=== PATIENT | female | born 1940 | race Caucasian/White ===

== ENCOUNTER 2018-03-12 13:00 | Outpatient (RCR) | payer MEDICARE, MEDICAID, SELFPAY | END 2018-03-12 13:01 | disposition home or self-care (01) | LOC: OT 13:00 | PROVIDERS: Family Provider Family Medicine; Visit Provider Orthopaedic Surgery Hand Surgery | DX: M06.09 Rheumatoid arthritis without rheumatoid factor, multiple sites (principal); M66.241 Spontaneous rupture of extensor tendons, right hand; M19.031 Primary osteoarthritis, right wrist; M85.631 Other cyst of bone, right forearm; Z48.89 Encounter for other specified surgical aftercare | CPT/HCPCS: 97110; 97140; 97163; 97166 ==

== ENCOUNTER → 2018-04-08 10:03 | Outpatient (CLI) | payer MEDICARE, MEDICAID, SELFPAY ==
[2018-04-08 10:51] LABS: Anion Gap 12.3 mEq/L (5-15); Blood Urea Nitrogen 22 mg/dL (7-18); Carbon Dioxide 27 mmol/L (21.0-32.0); Chloride 103 mmol/L (98-107); Creatinine,Serum 1.16 mg/dL (0.55-1.02); Estimated Glomerular Filt Rate 45 ml/min (>60); GFR (African American) 54 ML/MIN (>60); Glucose 136 mg/dL (74-106); Potassium 4.3 mmoL/L (3.5-5.1); Sodium 138 mmol/L (136-145)
== END ==
PROVIDERS: Visit Provider Physician Assistant
DX: R94.4 Abnormal results of kidney function studies (principal)
CPT/HCPCS: 36415; 80048

== ENCOUNTER → 2018-04-23 09:19 | Outpatient (CLI) | payer MEDICARE, MEDICAID, SELFPAY ==
[2018-04-23 10:45] LABS: Anion Gap 16.5 mEq/L (5-15); Blood Urea Nitrogen 22 mg/dL (7-18); Calcium 9.3 mg/dL (8.5-10.1); Carbon Dioxide 24 mmol/L (21.0-32.0); Chloride 101 mmol/L (98-107); Creatinine,Serum 1.26 mg/dL (0.55-1.02); Estimated Glomerular Filt Rate 41 ml/min (>60); GFR (African American) 49 ML/MIN (>60); Glucose 118 mg/dL (74-106); Potassium 4.5 mmoL/L (3.5-5.1); Sodium 137 mmol/L (136-145)
== END ==
PROVIDERS: Visit Provider Physician Assistant
DX: R94.4 Abnormal results of kidney function studies (principal)
CPT/HCPCS: 36415; 80048

== ENCOUNTER → 2018-05-18 08:57 | Outpatient (CLI) | payer MEDICARE, MEDICAID, SELFPAY ==
[2018-05-18 10:09] LABS: Anion Gap 9.9 mEq/L (5-15); Blood Urea Nitrogen 25 mg/dL (7-18); Calcium 9.1 mg/dL (8.5-10.1); Carbon Dioxide 30 mmol/L (21.0-32.0); Chloride 105 mmol/L (98-107); Creatinine,Serum 1.24 mg/dL (0.55-1.02); Estimated Glomerular Filt Rate 42 ml/min (>60); GFR (African American) 50 ML/MIN (>60); Glucose 143 mg/dL (74-106); Potassium 3.9 mmoL/L (3.5-5.1); Sodium 141 mmol/L (136-145)
== END ==
PROVIDERS: Visit Provider Physician Assistant
DX: N28.9 Disorder of kidney and ureter, unspecified (principal)
CPT/HCPCS: 36415; 80048

== ENCOUNTER 2019-01-16 09:13 | Observation (INO) ==
--- NOTE | 2019-01-16 09:23 | Emergency Department Note ---
ED Disposition Clinical Impression: UTI (urinary tract infection), Hypokalemia Disposition: Home, Self-Care Condition on Discharge: Good Time of Disposition: 14:30 - Critical Care Critical Care Time: No Attestation: On , the high probability of a clinically significant, sudden or life threatening deterioration of the following system(s) required my full and direct attention, intervention and personal management. The time I documented below is in addition to time spent performing reported procedures but includes the following listed in this critical care notation. Medical Decision Making - Medical Records Medical records reviewed: Yes: I reviewed the patient's medical records. - Rohit Inquiry Pt receiving controlled substance: No Rohit was queried for this patient: No Vital Signs: 01/16/19 09:10 01/16/19 10:33 01/16/19 12:00 Temperature 99.6 F Temperature Source Oral Pulse Rate Pulse Rate [Right Brachial] 80 80 80 Respiratory Rate 18 Blood Pressure Blood Pressure [Right Arm] 148/89 H 135/87 141/86 H Blood Pressure Mean [Right Arm] 108 103 104 Blood Pressure Source Blood Pressure Source [Right Arm] Automatic Cuff Blood Pressure Position Blood Pressure Position [Right Arm] Sitting 02 Sat by Pulse Oximetry 97 97 94 L Oxygen Delivery Method Room Air 01/16/19 14:25 01/16/19 15:05 01/16/19 15:30 Temperature 98.0 F Temperature Source Oral Pulse Rate 81 Pulse Rate [Right Brachial] 82 Respiratory Rate 18 Blood Pressure 115/59 L Blood Pressure [Right Arm] 151/85 H Blood Pressure Mean [Right Arm] 107 Blood Pressure Source Automatic Cuff Blood Pressure Source [Right Arm] Blood Pressure Position Sitting Blood Pressure Position [Right Arm] 02 Sat by Pulse Oximetry 95 Oxygen Delivery Method Room Air Room Air - Lab Data Lab results reviewed: Yes: I reviewed the patient's lab results. Lab Results 01/16/19 09:17: WBC 7.4, RBC 5.24, Hgb 16.1, Hct 45.5, MCV 86.8, MCH 30.7, MCHC 35.4, RDW 13.5, Plt Count 251, MPV 7.0 L, Neut % (Auto) 78.7, Lymph % (Auto) 13.8, [place] % (Auto) 5.8, Eos % (Auto) 1.2, Baso % (Auto) 0.4, Neut # (Auto) 5.8, Lymph # (Auto) 1.0, [place] # (Auto) 0.4, Eos # (Auto) 0.1, Baso # (Auto) 0.0 01/16/19 09:17: Sodium 143, Potassium 2.8 L*, Chloride 103, Carbon Dioxide 26, Anion Gap 16.8 H, BUN 18, Creatinine 1.15 H, Estimated Creat Clear 43, Estimated GFR 45 L, Est GFR ( Amer) 55 L, Glucose 185 H, Calcium 9.2, Total Bilirubin 0.8, AST 15, ALT 18, Alkaline Phosphatase 67, Troponin I < 0.02, Total Protein 7.7, Albumin 3.8, Globulin 3.9 H, Albumin/Globulin Ratio 1.0 L 01/16/19 09:17: Influenza Type A Ag Negative, Influenza Type B Ag Negative 01/16/19 09:17: Lactate 1.3 01/16/19 11:35: Urine Color Yellow, Urine Appearance Sl cloudy, Urine pH 6.5, Ur Specific [place] 1.010, Urine Protein Negative, Urine Glucose (UA) Negative, Urine Ketones Negative, Urine Blood Negative, Urine Nitrate Negative, Urine Bilirubin Negative, Urine Urobilinogen 0.2, Ur Leukocyte Esterase 1+ A, Urine WBC 20-50, Ur Squamous Epith Cells Occasional, Urine Bacteria 4+ Result diagrams: 01/17/19 05:49 01/18/19 06:35 Orders (Tests/Meds): ED MEDICATIONS Discontinued Medications Generic Name Dose Route Start Last Admin Trade Name Kathie PRN Reason Stop Dose Admin Bisacodyl 10 mg 01/17/19 17:54 01/17/19 18:33 Dulcolax 5mg Tablet PO 01/17/19 17:55 10 mg ONCE ONE Administration Bisacodyl 10 mg 01/18/19 07:34 01/18/19 08:30 Dulcolax 10mg Supp RC 01/18/19 07:35 10 mg ONCE ONE Administration Glimepiride 2 mg 01/17/19 09:00 01/18/19 08:29 Amaryl 2mg Tablet PO 02/16/19 08:59 2 mg DAILY TREVA Administration Sodium Chloride 1,000 mls @ 999 mls/hr 01/16/19 09:15 01/16/19 09:20 Sod Chlor 0.9% 1000ml Bag IV 01/16/19 10:15 999 mls/hr .Q1H1M TREVA Administration Potassium Chloride/Water 100 mls @ 100 mls/hr 01/16/19 10:32 01/16/19 10:33 Potassium Chloride 10meq/100ml Ivpb IV 01/16/19 11:31 100 mls/hr ONCE ONE Administration Ceftriaxone Sodium 2 gm/ 50 mls @ 100 mls/hr 01/16/19 12:15 01/16/19 12:10 Sodium Chloride IV 01/30/19 12:14 100 mls/hr Q24H TREVA Administration Protocol Ceftriaxone Sodium 2 gm/ 100 mls @ 200 mls/hr 01/17/19 11:00 Sodium Chloride IV 01/31/19 10:59 Q24H TREVA Protocol Sodium Chloride 1,000 mls @ 125 mls/hr 01/16/19 15:05 01/17/19 20:33 Sod Chlor 0.9% 1000ml Bag IV 02/15/19 15:04 Not Given .Q8H TREVA Levofloxacin/Dextrose 750 mg in 150 mls @ 100 mls/hr 01/16/19 15:05 01/17/19 15:36 Levofloxacin 750mg/150ml Premix IV 01/30/19 15:04 100 mls/hr Q24H TREVA Administration Protocol Sodium Chloride 1,000 mls @ 75 mls/hr 01/17/19 18:00 01/18/19 08:27 Sod Chlor 0.9% 1000ml Bag IV 02/16/19 17:59 75 mls/hr .[id number] TREVA Administration Ceftriaxone Sodium 1 gm/ 50 mls @ 100 mls/hr 01/18/19 08:00 01/18/19 08:26 Sodium Chloride IV 02/01/19 07:59 100 mls/hr Q24H TREVA Administration Protocol Levothyroxine Sodium 50 mcg 01/17/19 09:00 01/18/19 08:29 Synthroid 50mcg (0.05mg) Tablet PO 02/16/19 08:59 50 mcg DAILY TREVA Administration Levothyroxine Sodium 50 mcg 01/17/19 09:00 Synthroid 50mcg (0.05mg) Tablet PO 02/16/19 08:59 DAILY TREVA Non-Formulary Medication 1 tab 01/17/19 09:00 Apixaban [Eliquis] PO 02/16/19 08:59 DAILY TREVA Non-Formulary Medication 1 tab 01/16/19 15:05 01/16/19 20:12 Dofetilide [Dofetilide] PO 02/15/19 15:04 1 tab DIRECTED TREVA Administration Non-Formulary Medication 1 tab 01/16/19 15:05 Metoprolol Tartrate [Metoprolol Tartrate] PO 02/15/19 15:04 DIRECTED TREVA Pt's Own Med 1 tab 01/16/19 21:00 01/17/19 21:00 Simvastatin 40 Mg PO 02/15/19 20:59 1 tab Tab HS TREVA Administration Pt's Own Med 5 tab 01/16/19 21:00 01/17/19 09:26 Apixaban [Eliquis] 5 PO 02/15/19 20:59 Not Given Tab BID TREVA Non-Formulary Medication 100 tab 01/16/19 21:00 01/16/19 20:14 Metoprolol Tartrate [Metoprolol Tartrate] PO 02/15/19 20:59 100 tab BID TREVA Administration Pt's Own Med 1 tab 01/17/19 08:26 01/18/19 08:28 Dofetilide [ PO 02/15/19 15:04 1 tab Dofetilide] 250 Mcg BID TREVA Administration Tab Pt's Own Med 1 tab 01/17/19 08:29 01/18/19 08:29 Metoprolol Tartrate PO 02/15/19 20:59 1 tab 100mg Tab BID TREVA Administration Pt's Own Med 1 tab 01/17/19 09:09 01/18/19 08:28 Apixaban [Eliquis] 5 PO 02/15/19 20:59 1 tab Tab BID TREVA Administration Ondansetron HCl 4 mg 01/16/19 09:15 01/16/19 09:21 Zofran 4mg/2ml Vial IV 01/16/19 09:16 4 mg ONCE ONE Administration Ondansetron HCl 4 mg 01/16/19 15:05 01/17/19 07:46 Zofran 4mg/2ml Vial IV 02/15/19 15:04 4 mg Q8HP PRN Administration Nausea Potassium Chloride 40 meq 01/16/19 09:53 01/16/19 10:23 Klor-Con 20meq Tablet PO 01/16/19 09:54 20 meq ONCE ONE Administration Potassium Chloride 20 meq 01/16/19 21:00 Klor-Con 20meq Tablet PO 02/15/19 20:59 TID TREVA Potassium Chloride meq 01/16/19 15:05 Klor-Con 20meq Tablet PO 02/15/19 15:04 DIRECTED TREVA Potassium Chloride 20 meq 01/16/19 21:00 01/18/19 12:36 Klor-Con 20meq Tablet PO 02/15/19 20:59 20 meq TID TREVA Administration Senna/Docusate Sodium 2 tab 01/17/19 09:00 01/18/19 08:30 Senokot-S Tablet PO 02/16/19 08:59 2 tab DAILY TREVA Administration Sodium Chloride 10 ml 01/17/19 07:44 Saline Flush 10ml Syringe IV 02/16/19 07:43 NEEDED PRN Maintain IV Site Sodium Chloride 10 ml 01/17/19 17:53 Saline Flush 10ml Syringe IV 02/16/19 17:52 NEEDED PRN Maintain IV Site General Adult HPI - General Chief complaint: Nausea/Vomiting/Diarrhea Stated complaint: weakness, fever,n/v Time Seen by Provider: 01/16/19 09:21 Mode of Arrival: EMS Source of Information: Patient Limitations: No Limitations Description of Symptoms (Recalled from ER Triage Doc. by RN): experienced n/v last week with recovery; began vomiting again this date, low grade fever, weakness experienced - History of Present Illness HPI narrative: nausea since yesterday, 10 days ago had n/v but did not see doctor. No pain - Related Data Home Medications Medication Instructions Recorded Confirmed RX: Apixaban [Eliquis] 5 mg PO BID 01/16/19 01/17/19 RX: Dofetilide 250 mcg PO BID 01/16/19 01/17/19 RX: Glimepiride [Amaryl 2mg tablet] 2 mg PO DAILY 01/16/19 01/17/19 RX: Levothyroxine Sodium 50 mcg PO DAILY 01/16/19 01/17/19 [Levothyroxine 50mcg (0.05mg) Tab] RX: Metoprolol Tartrate 100 mg PO BID 01/16/19 01/17/19 RX: Simvastatin 40 mg PO HS 01/16/19 01/17/19 RX: Furosemide [Furosemide 40MG 20 mg PO DAILY 01/17/19 01/17/19 tAB] Previous Rx's Medication Instructions Recorded RX: Potassium Chloride [Klor-con 20 meq PO BID #0 01/18/19 20 mEq tablet] RX: cefUROXime axetil [Ceftin 500 mg PO BID #14 tab 01/18/19 500mg Tab (GEQ)] Allergies Allergy/AdvReac Type Severity Reaction Status Date / Time No Known Allergies Allergy Verified 01/16/19 09:14 [facility] History - Hepatitis A Screen Drug use history?: No High risk sexual behaviors?: No History of sexually transmitted infection?: No Currently employed?: No Childcare worker?: No Do you have indoor plumbing?: Yes Do you have electricity?: Yes Attestation statement:: This patient has been screened for Hepatitis A risk factors. I have reviewed the patient's past medical history: No ROS Obtained: Yes All systems reviewed & no additional complaints - Constitutional Constitutional: Reports system reviewed and no additional complaints, except as docu, Reports chills, Reports fever(s), Reports lethargy - Eyes Eyes: Reports system reviewed and no additional complaints, except as docu, Denies change in vision - ENT Ears, Nose, Mouth, and Throat: Reports system reviewed and no additional compla ints, except as docu, Denies sore throat, Denies throat swelling - Cardiovascular Cardiovascular: Reports system reviewed and no additional complaints, except as docu, Denies chest pain - Respiratory Respiratory: Yes system reviewed and no additional complaints, except as docu, No chest congestion, No cough - Gastrointestinal Gastrointestingal: Reports: system reviewed and no additional complaints, except as docu, nausea. Denies: abdominal pain, diarrhea - Genitourinary Female Genitourinary: Denies dysuria - Musculoskeletal Musculoskeletal: Denies joint pain, Denies joint stiffness, Denies joint s welling, Reports muscle weakness - Integumentary/Breasts Skin/Breast: Reports system reviewed and no additional complaints, except as docu, Denies rash - Neurologic Neurologic: Reports system reviewed and no additional complaints, except as docu, Reports dizziness (with standing), Denies seizure-like activity, Denies syncope - Hematologic/Lymphatic Henatologic/Lymphatic: Denies easy bleeding, Denies easy bruising, Denies lymphadenopathy Physical Exam - General General appearance: alert - Head Head exam: atraumatic, normocephalic, normal inspection - ENT ENT exam: Present: normal exam, normal oropharynx, mucous membranes moist, TM's normal bilaterally, normal external ear exam - Chest Chest inspection: Present: normal inspection, symmetric chest wall rise. Absent: tenderness - Respiratory Respiratory exam: Present: normal lung sounds bilaterally. Absent: respiratory distress - Cardiovascular Cardiovascular exam: Present: regular rate - Abdominal Exam Abdominal exam: Present: soft, normal bowel sounds. Absent: distention, tenderness, guarding - Extremities Exam Extremities exam: Present: normal inspection, full ROM, normal capillary refill. Absent: calf tenderness - Back Exam Back exam: Present: normal inspection. Absent: tenderness - Neurological Exam Neurological exam: Present: alert, oriented X3, CN II-XII intact - Psychiatric Psychiatric exam: Present: normal affect, normal mood - Skin Skin exam: Present: warm, dry, intact, normal color - Lymphatic Lymphatic Findings: no adenopathy
[2019-01-16 09:29] LABS: Basophils % 0.4 % (0.1-2.0); Eosinophils # 0.1 K/mm3 (0.0-0.4); Eosinophils % 1.2 % (0.1-12.0); Hematocrit 45.5 % (37.0-47.0); Hemoglobin 16.1 g/dL (12.2-16.2); Lymphocytes % 13.8 % (10-50); Mean Corpuscular HGB Conc 35.4 g/dL (31.8-35.4); Mean Corpuscular Hemoglobin 30.7 pg (27.0-31.2); Mean Corpuscular Volume 86.8 fl (81-99); Monocytes # 0.4 K/mm3 (0.1-1.0); Monocytes % 5.8 % (1.7-9.3); Neutrophils # 5.8 K/mm3 (1.8-7.8); Neutrophils % 78.7 % (37.0-80.0); Platelet Count 251 K/mm3 (142-424); Red Blood Count 5.24 M/mm3 (4.20-5.40); Red Cell Distribution Width 13.5 % (11.5-17.5); White Blood Count 7.4 K/mm3 (4.8-10.8)
[2019-01-16 09:48] LABS: Alanine Aminotransferase 18 U/L (12-78); Albumin Level 3.8 gm/dL (3.4-5.0); Alkaline Phosphatase 67 U/L (46-116); Anion Gap 16.8 mEq/L (5-15); Aspartate Amino Transferase 15 U/L (15-37); Bilirubin,Total 0.8 mg/dL (0.2-1.0); Blood Urea Nitrogen 18 mg/dL (7-18); Calcium 9.2 mg/dL (8.5-10.1); Carbon Dioxide 26 mmol/L (21.0-32.0); Chloride 103 mmol/L (98-107); Globulin 3.9 gm/dl (1.3-3.2); Glucose 185 mg/dL (74-106); Sodium 143 mmol/L (136-145); Total Protein,Serum 7.7 gm/dL (6.4-8.2)
[2019-01-16 09:51] LABS: Potassium 2.8 mmoL/L (3.5-5.1)
[2019-01-16 11:39] LABS: Microscopic, Urine URINE MICROSCOPIC (MICROSCOPIC)
[2019-01-16 11:52] LABS: Appearance,Urine SL CLOUDY (Clear); Bilirubin,Urine Negative (Negative); Blood, Urine Negative (Negative); Color,Urine YELLOW (Yellow); Glucose,Urine (UA) Negative (Negative); Ketones,Urine Negative (Negative); Leukocyte Esterase,Urine 1+ (Negative); PH,Urine 6.5 (5.0-8.5); Protein,Urine Negative (Negative); Urobilinogen,Urine 0.2 EU/dl (0.2)
[2019-01-16 12:00] LABS: Bacteria,Urine 4+ /lpf; Squamous Epithelial Cell,Urine Occasional #/hpf (0-5); WBC,Urine 20-50 #/hpf (0-3)
--- NOTE | 2019-01-16 16:43 | Progress Note ---
Internal Medicine - PN: Subj *Date: 01/16/19 *Time: 16:40 Interval history: This 78-year-old white female presents in the emergency room with nausea and weakness. She has had some vomiting but not today. The emergency room she was found to have urinary tract infection with 4+ bacteria and white blood cells in the urine. Her potassium was low at 2.8. She is admitted for treatment of the UTI and correction of the hypokalemia. She has had sick sinus syndrome and had AV node ablation and pacemaker placement in the past. She is on Tikosyn 250 mcg 2 times daily she takes Eliquis 5 mg twice a day and levothyroxine for hypothyroidism. She takes glimepiride 2 mg once a day for diabetes mellitus. Exam Vital signs and Labs for Last 24 Hours: Temp Pulse Resp BP Pulse Ox 97.7 F 70 18 151/72 H 98 01/16/19 16:00 01/16/19 16:00 01/16/19 16:00 01/16/19 16:00 01/16/19 16:33 Laboratory Results - last 24 hr 01/16/19 09:17: WBC 7.4, RBC 5.24, Hgb 16.1, Hct 45.5, MCV 86.8, MCH 30.7, MCHC 35.4, RDW 13.5, Plt Count 251, MPV 7.0 L, Neut % (Auto) 78.7, Lymph % (Auto) 13.8, [place] % (Auto) 5.8, Eos % (Auto) 1.2, Baso % (Auto) 0.4, Neut # (Auto) 5.8, Lymph # (Auto) 1.0, [place] # (Auto) 0.4, Eos # (Auto) 0.1, Baso # (Auto) 0.0 01/16/19 09:17: Sodium 143, Potassium 2.8 L*, Chloride 103, Carbon Dioxide 26, Anion Gap 16.8 H, BUN 18, Creatinine 1.15 H, Estimated Creat Clear 43, Estimated GFR 45 L, Est GFR ( Amer) 55 L, Glucose 185 H, Calcium 9.2, Total Bilirubin 0.8, AST 15, ALT 18, Alkaline Phosphatase 67, Troponin I < 0.02, Total Protein 7.7, Albumin 3.8, Globulin 3.9 H, Albumin/Globulin Ratio 1.0 L 01/16/19 09:17: Influenza Type A Ag Negative, Influenza Type B Ag Negative 01/16/19 09:17: Lactate 1.3 01/16/19 11:35: Urine Color Yellow, Urine Appearance Sl cloudy, Urine pH 6.5, Ur Specific [place] 1.010, Urine Protein Negative, Urine Glucose (UA) Negative, Urine Ketones Negative, Urine Blood Negative, Urine Nitrate Negative, Urine Bilirubin Negative, Urine Urobilinogen 0.2, Ur Leukocyte Esterase 1+ A, Urine WBC 20-50, Ur Squamous Epith Cells Occasional, Urine Bacteria 4+ I & O for Last 24 hours: Intake & Output 01/14/19 01/15/19 01/16/19 01/17/19 10:59 10:59 11:59 11:59 Intake Total 0 / 0 Balance 0 / 0 Weight 159 lb - Constitutional no acute distress - *Routine HEENT Exam Head: Present: normocephalic Eye: Present: PERRL ENT: Present: mucous membranes moist - *Routine Neck Exam Present: full ROM - Routine Chest/Breast/Axilla Exam Chest wall: Present: pacemaker (Left chest) - *Routine Respiratory Exam Present: CTA bilaterally - *Routine Cardiovascular Exam Present: RRR - *Routine Abdominal Exam Present: soft. Absent: tenderness, organomegaly - *Routine Extremities Exam Present: edema (Minimal) - *Routine Neurological Exam Present: alert, oriented X3 Assessment and Plan (1) Hypokalemia Current visit: Yes Status: Acute Category: Medical Code(s): E87.6 - Hypokalemia (2) UTI (urinary tract infection) Current visit: Yes Status: Acute Category: Medical Code(s): N39.0 - Urinary tract infection, site not specified (3) Diabetes mellitus Current visit: Yes Status: Acute Category: Medical Code(s): E11.9 - Type 2 diabetes mellitus without complications (4) Status cardiac pacemaker Current visit: Yes Status: Acute Category: Surgical Code(s): Z95.0 - Presence of cardiac pacemaker (5) Hypothyroidism (acquired) Current visit: Yes Status: Acute Category: Medical Code(s): E03.9 - Hypothyroidism, unspecified - Assessment and plan all Dx Assessment and Plan for all problems:: See orders for antibiotics and supplementation of potassium.
[2019-01-17 06:46] LABS: Basophils % 0.4 % (0.1-2.0); Eosinophils # 0.1 K/mm3 (0.0-0.4); Mean Corpuscular Volume 88.3 fl (81-99); Monocytes # 0.4 K/mm3 (0.1-1.0)
[2019-01-17 06:51] LABS: Anion Gap 12.7 mEq/L (5-15); Potassium 3.7 mmoL/L (3.5-5.1)
[2019-01-17 06:54] LABS: Eosinophils % 1.9 % (0.1-12.0); Hematocrit 37.7 % (37.0-47.0); Lymphocytes # 0.8 K/mm3 (0.7-4.5); Lymphocytes % 17.1 % (10-50); Mean Corpuscular HGB Conc 34.2 g/dL (31.8-35.4); Mean Corpuscular Hemoglobin 30.2 pg (27.0-31.2); Monocytes % 9.1 % (1.7-9.3); Neutrophils # 3.3 K/mm3 (1.8-7.8); Neutrophils % 71.5 % (37.0-80.0); Platelet Count 200 K/mm3 (142-424); Red Blood Count 4.27 M/mm3 (4.20-5.40); White Blood Count 4.6 K/mm3 (4.8-10.8)
[2019-01-17 06:55] LABS: Hemoglobin 12.9 g/dL (12.2-16.2)
--- NOTE | 2019-01-17 07:37 | Pharmacy Consult Notes ---
[facility] Pharmacy VTE Monitoring - Patient Demographics Admission date: 01/16/19 Report Date: 01/17/19 Time: 07:37 Allergies/Adverse Reactions: Patient Allergies No Known Allergies Allergy (Verified 01/16/19 09:14) Height: 1.6 m Weight: 72.121 kg Patient Problems: Current Active Problems UTI (urinary tract infection) (Acute) Hypokalemia (Acute) Diabetes mellitus (Acute) Status cardiac pacemaker (Acute) Hypothyroidism (acquired) (Acute) - VTE Risk Labs: VTE Related Lab Results Hgb 12.9 g/dL (12.2-16.2) D 01/17/19 05:49 Hct 37.7 % (37.0-47.0) 01/17/19 05:49 Plt Count 200 K/mm3 (142-424) 01/17/19 05:49 BUN 24 mg/dL (7-18) H D 01/17/19 05:49 Creatinine 0.89 mg/dL (0.55-1.02) D 01/17/19 05:49 Estimated Creat Clear 51 mL/min (50-200) 01/17/19 05:49 Was VTE Risk Assessment Performed: Yes VTE Risk Level: Very Low Risk - Prophylaxis VTE Prophylaxis Ordered?: Yes Types of VTE Prophylaxis: TEDS Knee High, Pharmacological Location of Applied Device: Bilateral Lower Extremeties Pharmacologic Type: Other (ELIQUIS) - VTE Diagnosis Confirmed Treatment or plan recommended: Continue Current Treatment
[2019-01-17 08:00] LABS: Amylase 28 U/L (25-115); Lipase 122 u/L (73-393)
--- NOTE | 2019-01-17 11:03 | History & Physical Report ---
Addendum entered and electronically signed by Anna Ayers APRN 01/17/19 13:07: Original Note: *Admission Date: 01/16/19 <Anna Ayers 01/17/19 11:03> *Chief complaint: nausea <Anna Ayers 01/17/19 11:03> *History of present illness: Ms Reynolds is an 78 year old female with a history of hypertension, TIA, paroxysmal atrial fibrillation, pacemaker, and type 2 diabetes mellitus who presented to [facility] emergency room with nausea and weakness. She states she started vomiting 2 weeks ago but has not vomited recently. She is continued with the nausea and has had minimal food intake. She is able to retain fluids and take her meds. With evaluation in the emergency room she was found to have a low potassium of 2.8 as well as a urinary tract infection. She was admitted with IV antibiotics and has received potassium. This a.m. she continues to be somewhat nauseated. She states her bowels have not moved for 4-5 days. Urine culture is positive for gram-negative rods. <Anna Ayers 01/17/19 13:05> [facility] History Medical History: Reports:: Atrial Fibrillation, Diabetes Mellitus Type 2, Hyperlipidemia, Hypertension <Anna Ayers 01/17/19 11:03> *Have you ever received a pneumonia vaccine?: No <Anna Ayers 01/17/19 11:03> *Have you received a flu vaccine this season?: Yes <Anna Ayers 01/17/19 11:03> Other Medical History: Reports: Arthritis, Thyroid Disease <Anna Ayers 01/17/19 11:03> Other Surgeries: Yes: Cardiac Catheterization, Cardiac Surgery, Cholecystectomy, Pacemaker <Anna Ayers 01/17/19 13:05> Comment: Tendon repairs in the left and right hand <Anna Ayers 01/17/19 13:05> - *Social History Educational Level: Completed High School <Anna Ayers 01/17/19 11:03> Smoking Status: Never smoker <Anna Ayers 01/17/19 11:03> Alcohol Intake: never <Anna Ayers 01/17/19 11:03> *Occupational Status:: retired <Anna Ayers 01/17/19 11:03> Housing: house <Anna Ayers 01/17/19 11:03> Household Members: none <ArmenAnna 01/17/19 11:03> *Travel in the last 8 weeks: None <AyersAnna 01/17/19 11:03> - Psychiatric History Expresses thoughts of harming self/others: None <Ayers,Anna 01/17/19 11:03> Suicide Plan Description: No Plan <AyersAnna 01/17/19 11:03> Family Hx:: Coronary Artery Disease, Diabetes, Stroke <Ayers,Anna 01/17/19 13:05> Review of Systems - Constitutional Reports fever(s), Denies body ache(s) <Ayers,Anna 01/17/19 13:05> - ENT Denies ear pain, Denies sore throat <Ayers,Anna 01/17/19 13:05> - *Cardiovascular Denies chest pain, Denies shortness of breath, Denies irregular heart rhythm <Ayers,Anna 01/17/19 13:05> - *Respiratory Denies chest congestion, Denies cough, Denies shortness of breath <AyersAnna - 01/17/19 13:05> - *Gastrointestinal Reports constipation, Reports nausea, Reports vomiting, Denies coffee ground vomit, Denies cramping <AyersAnna 01/17/19 13:05> - *Genitourinary Denies painful urination <ArmenAnna - 01/17/19 13:05> - *Musculoskeletal Denies abnormal walking, Denies joint pain <Ayers,Anna - 01/17/19 13:05> - *Neurologic Reports dizziness (with standing), Denies seizure-like activity, Denies fainting <ArmenAnna 01/17/19 11:03> Meds Home Medications Medication Instructions Recorded Confirmed Type Apixaban [Eliquis] 5 mg PO BID 01/16/19 01/17/19 History Dofetilide 250 mcg PO BID 01/16/19 01/17/19 History Glimepiride [Amaryl 2mg tablet] 2 mg PO DAILY 01/16/19 01/17/19 History Levothyroxine Sodium 50 mcg PO DAILY 01/16/19 01/17/19 History [Levothyroxine 50mcg (0.05mg) Tab] Metoprolol Tartrate 100 mg PO BID 01/16/19 01/17/19 History Potassium Chloride [Klor-con 20 20 meq PO DAILY 01/16/19 01/17/19 History mEq tablet] Simvastatin 40 mg PO HS 01/16/19 01/17/19 History Furosemide [Furosemide 40MG tAB] 20 mg PO DAILY 01/17/19 01/17/19 History <Juan Ramsey - 01/17/19 17:32> Allergies Allergy/AdvReac Type Severity Reaction Status Date / Time No Known Allergies Allergy Verified 01/16/19 09:14 <Juan Ramsey - 01/17/19 17:32> Exam Vital signs and Labs for Last 24 Hours: Temp Pulse Resp BP Pulse Ox 98.4 F 70 16 131/69 99 01/17/19 15:47 01/17/19 15:47 01/17/19 15:47 01/17/19 15:47 01/17/19 15:47 Laboratory Results - last 24 hr 01/16/19 11:35: Urine Color Yellow, Urine Appearance Sl cloudy, Urine pH 6.5, Ur Specific [place] 1.010, Urine Protein Negative, Urine Glucose (UA) Negative, Urine Ketones Negative, Urine Blood Negative, Urine Nitrate Negative, Urine Bilirubin Negative, Urine Urobilinogen 0.2, Ur Leukocyte Esterase 1+ A, Urine WBC 20-50, Ur Squamous Epith Cells Occasional, Urine Bacteria 4+ 01/16/19 20:07: POC Glucose 131 H 01/17/19 05:49: WBC 4.6 L D, RBC 4.27, Hgb 12.9 D, Hct 37.7, MCV 88.3, MCH 30.2, MCHC 34.2, RDW 14.0, Plt Count 200, MPV 7.0 L, Neut % (Auto) 71.5, Lymph % (Auto) 17.1, [place] % (Auto) 9.1, Eos % (Auto) 1.9, Baso % (Auto) 0.4, Neut # (Auto) 3.3, Lymph # (Auto) 0.8, [place] # (Auto) 0.4, Eos # (Auto) 0.1, Baso # (Auto) 0.0 01/17/19 05:49: Sodium 145, Potassium 3.7 D, Chloride 110 H, Carbon Dioxide 26, Anion Gap 12.7, BUN 24 H D, Creatinine 0.89 D, Estimated Creat Clear 51, Estimated GFR 61, Est GFR ( Amer) 74 D, Glucose 132 H D, Calcium 8.0 L D 01/17/19 05:49: Amylase 28, Lipase 122 01/17/19 05:50: POC Glucose 123 H 01/17/19 11:16: POC Glucose 135 H 01/17/19 16:32: POC Glucose 85 <Juan Ramsey - 01/17/19 17:32> Temp Pulse Resp BP Pulse Ox 98.5 F 64 20 143/62 H 97 01/17/19 08:00 01/17/19 08:00 01/17/19 08:00 01/17/19 08:00 01/17/19 09:10 Laboratory Results - last 24 hr 01/16/19 09:17: Lactate 1.3 01/16/19 11:35: Urine Color Yellow, Urine Appearance Sl cloudy, Urine pH 6.5, Ur Specific [place] 1.010, Urine Protein Negative, Urine Glucose (UA) Negative, Urine Ketones Negative, Urine Blood Negative, Urine Nitrate Negative, Urine Bilirubin Negative, Urine Urobilinogen 0.2, Ur Leukocyte Esterase 1+ A, Urine WBC 20-50, Ur Squamous Epith Cells Occasional, Urine Bacteria 4+ 01/16/19 16:31: POC Glucose 121 H 01/16/19 20:07: POC Glucose 131 H 01/17/19 05:49: WBC 4.6 L D, RBC 4.27, Hgb 12.9 D, Hct 37.7, MCV 88.3, MCH 30.2, MCHC 34.2, RDW 14.0, Plt Count 200, MPV 7.0 L, Neut % (Auto) 71.5, Lymph % (Auto) 17.1, [place] % (Auto) 9.1, Eos % (Auto) 1.9, Baso % (Auto) 0.4, Neut # (Auto) 3.3, Lymph # (Auto) 0.8, [place] # (Auto) 0.4, Eos # (Auto) 0.1, Baso # (Auto) 0.0 01/17/19 05:49: Sodium 145, Potassium 3.7 D, Chloride 110 H, Carbon Dioxide 26, Anion Gap 12.7, BUN 24 H D, Creatinine 0.89 D, Estimated Creat Clear 51, Estimated GFR 61, Est GFR ( Amer) 74 D, Glucose 132 H D, Calcium 8.0 L D 01/17/19 05:49: Amylase 28, Lipase 122 01/17/19 05:50: POC Glucose 123 H <Anna Ayers - 01/17/19 11:03> I & O for Last 24 hours: Intake & Output 01/15/19 01/16/19 01/17/19 01/18/19 10:59 11:59 11:59 11:59 Intake Total 1481 / 1481 726 / 726 Balance 1481 / 1481 726 / 726 Weight 159 lb 159 lb <Juan Ramsey - 01/17/19 17:32> Intake & Output 01/14/19 01/15/19 01/16/19 01/17/19 10:59 10:59 11:59 11:59 Intake Total 1331 / 1331 Balance 1331 / 1331 Weight 159 lb <Anna Ayers 01/17/19 11:03> Microbiology Reports for the Last 24 Hours: Microbiology 01/16/19 11:35 Urine,Clean Catch Urine Culture - Preliminary Gram Negative Rods <Juan Ramsey - 01/17/19 17:32> Microbiology 01/16/19 11:35 Urine,Clean Catch Urine Culture - Preliminary Gram Negative Rods <Anna Ayers - 01/17/19 11:03> Radiology Reports for the Last 24 Hours: 01/16/2019 chest x-ray IMPRESSION. 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 And there may be very slight additional prominence of pulmonary vascularity but remains WNL with no CHF. *Slight additional density and fullness right paratracheal region-could be due to AP projection, & technique.-However Would suggest a follow-up PA & lateral chest with next few weeks to further evaluate. Mild cardiomegaly. Pacemaker revised since 2011 CXR Moderate Hiatal hernia.-slight more evident today. <Anna Ayers 01/17/19 13:05> - Constitutional no acute distress <[facility] 01/17/[facility] 13[facility]05> - *Routine HEENT Exam Head: Present: normocephalic, atraumatic <ArmenAnna 01/17/19 13:05> Eye: Present: PERRL. Absent: conjunctival icterus, scleral injection, conjunctivae pink <Ayers,[facility] 01/17/19 13:05> ENT: Present: mucous membranes moist <Ayers,[facility] 01/17/19 13:05> - *Routine Neck Exam Present: supple. Absent: carotid bruit, lymphadenopathy, thyromegaly <[facility] 01/17/19 13:05> - *Routine Respiratory Exam Present: CTA bilaterally (A&P) <[facility] 01/17/19 13:05> - *Routine Cardiovascular Exam Present: RRR <[facility] 01/17/19 13:05> - *Routine Abdominal Exam Present: soft, normoactive bowel sounds. Absent: tenderness, distended <Ayers,[facility] 01/17/19 13:05> - *Routine Extremities Exam Absent: edema, calf tenderness <[facility] 01/17/19 13:05> Assessment and Plan (1) Hypokalemia Current visit: Yes Status: Acute Category: Medical Code(s): E87.6 - Hypokalemia (2) UTI (urinary tract infection) Current visit: Yes Status: Acute Category: Medical Code(s): N39.0 - Urinary tract infection, site not specified (3) Diabetes mellitus Current visit: Yes Status: Acute Category: Medical Code(s): E11.9 - Type 2 diabetes mellitus without complications (4) Status cardiac pacemaker Current visit: Yes Status: Acute Category: Surgical Code(s): Z95.0 - Presence of cardiac pacemaker (5) Hypothyroidism (acquired) Current visit: Yes Status: Acute Category: Medical Code(s): E03.9 - Hypothyroidism, unspecified (6) Constipation Current visit: Yes Status: Acute Category: Medical Code(s): K59.00 - Constipation, unspecified <Juan Ramsey 01/17/19 17:32> (1) Hypokalemia Current visit: Yes Status: Acute Category: Medical Code(s): E87.6 - Hypokalemia (2) UTI (urinary tract infection) Current visit: Yes Status: Acute Category: Medical Code(s): N39.0 - Urinary tract infection, site not specified (3) Diabetes mellitus Current visit: Yes Status: Acute Category: Medical Code(s): E11.9 - Type 2 diabetes mellitus without complications (4) Status cardiac pacemaker Current visit: Yes Status: Acute Category: Surgical Code(s): Z95.0 - Presence of cardiac pacemaker (5) Hypothyroidism (acquired) Current visit: Yes Status: Acute Category: Medical Code(s): E03.9 - Hypothyroidism, unspecified (6) Constipation Current visit: Yes Status: Acute Category: Medical Code(s): K59.00 - Constipation, unspecified <Anna Ayers - 01/17/19 12:51> - Assessment and plan all Dx Assessment and Plan for all problems:: Patient seen and examined. Urine culture is growing a Gm negative lisbet. Concur with above assessment and plan. <Juan Ramsey - 01/17/19 17:32> Will continue with IVF's and Levaquin; Rocephin disc; GI rest; will add laxative <Anna Ayers - 01/17/19 13:05>
--- NOTE | 2019-01-18 07:33 | Progress Note ---
Addendum entered and electronically signed by Anna Ayers APRN 01/20/19 09:02: Original Note: <Anna Ayers - Last Filed: 01/18/19 07:30> Internal Medicine - PN: Subj *Date: 01/18/19 *Time: 07:30 Interval history: Patient is eating some with minimal nausea. No vomiting. Bowels have not moved. She does have flatus. She has walked to the bathroom without difficulty. She is voiding better. She denies chest pain shortness of breath. Urine culture reveals E. coli resistant to the Levaquin. Will change to Rocephin. Exam Vital signs and Labs for Last 24 Hours: Temp Pulse Resp BP Pulse Ox 98.2 F 70 18 129/58 L 98 01/18/19 04:00 01/18/19 04:00 01/18/19 04:00 01/18/19 04:00 01/18/19 04:00 Laboratory Results - last 24 hr 01/17/19 05:49: Amylase 28, Lipase 122 01/17/19 11:16: POC Glucose 135 H 01/17/19 16:32: POC Glucose 85 I & O for Last 24 hours: Intake & Output 01/15/19 01/16/19 01/17/19 01/18/19 10:59 11:59 11:59 11:59 Intake Total 1481 / 1481 1720 / 1720 Balance 1481 / 1481 1720 / 1720 Weight 159 lb 159 lb Microbiology Reports for the Last 24 Hours: Microbiology 01/16/19 11:35 Urine,Clean Catch Urine Culture - Final Escherichia coli - Constitutional no acute distress (Lying in bed and appears comfortable) - *Routine Respiratory Exam Present: CTA bilaterally (Anteriorly and posteriorly) - *Routine Cardiovascular Exam Present: RRR - *Routine Abdominal Exam Present: soft, normoactive bowel sounds. Absent: tenderness, distended - *Routine Extremities Exam Absent: edema, calf tenderness - *Routine Neurological Exam Present: alert, oriented X3 Assessment and Plan (1) Hypokalemia Status: Acute Category: Medical Code(s): E87.6 - Hypokalemia (2) UTI (urinary tract infection) Status: Acute Category: Medical Code(s): N39.0 - Urinary tract infection, site not specified (3) Diabetes mellitus Status: Acute Category: Medical Code(s): E11.9 - Type 2 diabetes mellitus without complications (4) Status cardiac pacemaker Status: Acute Category: Surgical Code(s): Z95.0 - Presence of cardiac pacemaker (5) Hypothyroidism (acquired) Status: Acute Category: Medical Code(s): E03.9 - Hypothyroidism, unspecified (6) Constipation Status: Acute Category: Medical Code(s): K59.00 - Constipation, unspecified - Assessment and plan all Dx Assessment and Plan for all problems:: Will give a Dulcolax suppository today. Changed to Rocephin. <Juan Ramsey - Last Filed: 01/18/19 18:27> Exam Vital signs and Labs for Last 24 Hours: Temp Pulse Resp BP Pulse Ox 98.1 F 72 18 146/61 H 98 01/18/19 07:57 01/18/19 07:57 01/18/19 07:57 01/18/19 07:57 01/18/19 07:57 Laboratory Results - last 24 hr 01/18/19 06:35: Sodium 146 H, Potassium 3.9, Chloride 114 H, Carbon Dioxide 23, Anion Gap 12.9, BUN 18, Creatinine 0.96, Estimated Creat Clear 51, Estimated GFR 56 L, Est GFR ( Amer) 68, Glucose 98, Calcium 8.5 I & O for Last 24 hours: Intake & Output 01/16/19 01/17/19 01/18/19 01/19/19 11:59 11:59 11:59 11:59 Intake Total 1481 / 1481 1720 / 1720 1984 Balance 1481 / 1481 1720 / 1720 1984 Weight 159 lb 159 lb Microbiology Reports for the Last 24 Hours: Microbiology 01/16/19 09:17 Blood Blood Culture - Preliminary NO GROWTH AFTER 48 HOURS 01/16/19 09:17 Blood Blood Culture - Preliminary NO GROWTH AFTER 48 HOURS 01/16/19 11:35 Urine,Clean Catch Urine Culture - Final Escherichia coli Assessment and Plan (1) E. coli urinary tract infection Status: Acute Category: Medical Code(s): N39.0 - Urinary tract infection, site not specified; B96.20 - Unspecified Escherichia coli [E. coli] as the cause of diseases classified elsewhere (2) Hypokalemia Status: Acute Category: Medical Code(s): E87.6 - Hypokalemia (3) Diabetes mellitus Status: Acute Category: Medical Code(s): E11.9 - Type 2 diabetes mellitus without complications (4) Status cardiac pacemaker Status: Acute Category: Surgical Code(s): Z95.0 - Presence of cardiac pacemaker (5) Hypothyroidism (acquired) Status: Acute Category: Medical Code(s): E03.9 - Hypothyroidism, unspecified (6) Constipation Status: Acute Category: Medical Code(s): K59.00 - Constipation, unspecified - Assessment and plan all Dx Assessment and Plan for all problems:: Patient seen and examined this AM. She looks and feels much better. Serum K+ is in normal range. She will get a dose if IV Rocephin this morning and a suppository for her constipation. Probably discharge later today.
[2019-01-18 07:37] LABS: Anion Gap 12.9 mEq/L (5-15); Calcium 8.5 mg/dL (8.5-10.1); Potassium 3.9 mmoL/L (3.5-5.1)
--- NOTE | 2019-01-18 21:30 | Discharge Summary ---
General - General Admission date:: 01/16/19 <Juan Rmasey - 01/23/19 15:42> 01/16/19 <Bing Méndez - 01/18/19 21:30> Discharge date: 01/18/19 <Bing Méndez - 01/18/19 21:30> HPI HPI: Ms Reynolds is an 78 year old female with a history of hypertension, TIA, paroxysmal atrial fibrillation, pacemaker, and type 2 diabetes mellitus who presented to [facility] emergency room with nausea and weakness. She states she started vomiting 2 weeks ago but has not vomited recently. She has continued with the nausea and has had minimal food intake. She is able to retain fluids and take her meds. With evaluation in the emergency room she was found to have a low potassium of 2.8 as well as a urinary tract infection. She was admitted with IV antibiotics and has received potassium. This a.m. she continues to be somewhat nauseated. She states her bowels have not moved for 4-5 days. Urine culture is positive for gram-negative rods. <Bing Méndez - 01/18/19 21:30> Hospital Course Hospital Course: The patient's chest x-ray showed no focal pneumonia and mild cardiomegaly. There was also a moderate hiatal hernia. She was started on IV fluids and Levaquin as well as GI rest. A laxative was added. She was also started on potassium supplementation. The patient did improve and had no further vomiting. She was able to eat with minimal nausea. Her urine culture revealed E. coli resistant to Levaquin, therefore her antibiotics were changed to Rocephin. She was also given a Dulcolax suppository for constipation. Her potassium normalized. She was stable to be discharged home on Ceftin as well as potassium. <Bing Méndez - 01/18/19 21:30> Objective Vital signs: Temp Pulse Resp BP Pulse Ox 98.1 F 72 18 146/61 H 98 01/18/19 07:57 01/18/19 07:57 01/18/19 07:57 01/18/19 07:57 01/18/19 07:57 <Juan Ramsey - 01/23/19 15:42> Temp Pulse Resp BP Pulse Ox 98.1 F 72 18 146/61 H 98 01/18/19 07:57 01/18/19 07:57 01/18/19 07:57 01/18/19 07:57 01/18/19 07:57 <Bing Méndez - 01/18/19 21:30> Narrative: - Constitutional no acute distress - *Routine HEENT Exam Head: Present: normocephalic, atraumatic Eye: Present: PERRL. Absent: conjunctival icterus, scleral injection, conjunctivae pink ENT: Present: mucous membranes moist - *Routine Neck Exam Present: supple. Absent: carotid bruit, lymphadenopathy, thyromegaly - *Routine Respiratory Exam Present: CTA bilaterally (A&P) - *Routine Cardiovascular Exam Present: RRR - *Routine Abdominal Exam Present: soft, normoactive bowel sounds. Absent: tenderness, distended - *Routine Extremities Exam Absent: edema, calf tenderness <Bing Méndez - 01/18/19 21:30> Results Labs on day of discharge: Labs from last 24 hours 01/18/19 06:35 Sodium 146 H Potassium 3.9 Chloride 114 H Carbon Dioxide 23 Anion Gap 12.9 BUN 18 Creatinine 0.96 Estimated Creat Clear 51 Estimated GFR 56 L Est GFR ( Amer) 68 Glucose 98 Calcium 8.5 Preliminary micro results at discharge 01/16/19 09:17 Blood Culture - Preliminary Blood NO GROWTH AFTER 48 HOURS 01/16/19 09:17 Blood Culture - Preliminary Blood NO GROWTH AFTER 48 HOURS <Bing Méndez - 01/18/19 21:30> DS: Diagnosis - Discharge Diagnosis (1) E. coli urinary tract infection Status: Acute (2) Hypokalemia Status: Acute (3) Diabetes mellitus Status: Acute (4) Status cardiac pacemaker Status: Acute (5) Hypothyroidism (acquired) Status: Acute (6) Constipation Status: Acute <Bing Méndez - 01/18/19 21:25> (1) E. coli urinary tract infection Status: Acute (2) Hypokalemia Status: Acute (3) Diabetes mellitus Status: Acute (4) Status cardiac pacemaker Status: Acute (5) Hypothyroidism (acquired) Status: Acute (6) Constipation Status: Acute <Juan Ramsey - 01/23/19 15:42> Discharge Plan - Patient Discharge Instructions ACTIVITY: Continue current activity <Bing Méndez - 01/18/19 21:30> DIET: continue same diet <Bing Méndez - 01/18/19 21:30> Patient Instructions: DI for Urinary Tract Infection (UTI), DI for Hypokalemia <Juan Ramsey - 01/23/19 15:42> Forms: <Juan Ramsey - 01/23/19 15:42> - Follow up Plan Follow up with: Juan Ramsey MD [Staff Physician] - 1 week <Juan Ramsey - 01/23/19 15:42> Disposition: Home, Self-Care <Juan Ramsey - 01/23/19 15:42> Home Medications: Home Medications Medication Instructions Recorded Confirmed Type RX: Apixaban [Eliquis] 5 mg PO BID 01/16/19 01/17/19 History RX: Dofetilide 250 mcg PO BID 01/16/19 01/17/19 History RX: Glimepiride [Amaryl 2mg tablet] 2 mg PO DAILY 01/16/19 01/17/19 History RX: Levothyroxine Sodium 50 mcg PO DAILY 01/16/19 01/17/19 History [Levothyroxine 50mcg (0.05mg) Tab] RX: Metoprolol Tartrate 100 mg PO BID 01/16/19 01/17/19 History RX: Simvastatin 40 mg PO HS 01/16/19 01/17/19 History RX: Furosemide [Furosemide 40MG 20 mg PO DAILY 01/17/19 01/17/19 History tAB] RX: Potassium Chloride [Klor-con 20 meq PO BID #0 01/18/19 01/17/19 Rx 20 mEq tablet] RX: cefUROXime axetil [Ceftin 500 mg PO BID #14 tab 01/18/19 Rx 500mg Tab (GEQ)] <Juan Ramsey - 01/23/19 15:42> Prescriptions/Medication Reconciliation: New RX: cefUROXime axetil [Ceftin 500mg Tab (GEQ)] 500 mg PO BID #14 tab Continue RX: Metoprolol Tartrate 100 mg PO BID RX: Levothyroxine Sodium [Levothyroxine 50mcg (0.05mg) Tab] 50 mcg PO DAILY RX: Glimepiride [Amaryl 2mg tablet] 2 mg PO DAILY RX: Apixaban [Eliquis] 5 mg PO BID RX: Simvastatin 40 mg PO HS RX: Dofetilide 250 mcg PO BID RX: Furosemide [Furosemide 40MG tAB] 20 mg PO DAILY Changed RX: Potassium Chloride [Klor-con 20 mEq tablet] 20 meq PO BID #0 <Juan Ramsey - 01/23/19 15:42> - Additional Information Additional Information: Patient seen and examined. Concur with plan for discharge as outlined above. <Juan Ramsey - 01/23/19 15:42>
== END 2019-01-18 14:32 | disposition home or self-care (01) ==
LOC: ER 09:13 → ICU 09:13
PROVIDERS: ADMIT Family Medicine; ATTEND Family Medicine
DX: Z16.11 Resistance to penicillins; E11.9 Type 2 diabetes mellitus without complications; Z79.899 Other long term (current) drug therapy; N39.0 Urinary tract infection, site not specified; Z86.73 Personal history of transient ischemic attack (TIA), and cerebral infarction without residual deficits; Z86.79 Personal history of other diseases of the circulatory system; R19.7 Diarrhea, unspecified; I10 Essential (primary) hypertension; K59.00 Constipation, unspecified; B96.20 Unspecified Escherichia coli [E. coli] as the cause of diseases classified elsewhere; R11.2 Nausea with vomiting, unspecified; E87.6 Hypokalemia; Z95.0 Presence of cardiac pacemaker; M19.90 Unspecified osteoarthritis, unspecified site; R53.1 Weakness; E03.9 Hypothyroidism, unspecified
CPT/HCPCS: 36415; 71010; 71045; 80048; 80053; 81001; 82150; 82962; 83605; 83690; 84484; 85025; 87040; 87086; 87088; 87186; 87275; 87276; 93005; 96365; 96367; 96375; 96376; 99284; G0378; J1956; J2405

== ENCOUNTER → 2019-04-20 11:00 | Outpatient (CLI) | payer MEDICARE, MEDICAID, SELFPAY ==
--- NOTE | 2019-04-20 11:09 | XR_ITS ---
XR chest 2V HISTORY: ITS.REASON: CRACKLES AT LT LUNG BASE ORDERING PHYSICIAN: HARESH Herrera PATIENT AGE: 79 years COMPARISON: 01/16/2019 FINDINGS: Bipolar pacemaker is present from left subclavian approach. Normal heart size. There is a hiatal hernia noted. No lobar consolidation or collapse. There is a moderate lower thoracic scoliosis convex right. IMPRESSION: No change with no acute finding
== END ==
PROVIDERS: PCP Family Medicine; Visit Provider Physician Assistant
DX: R09.89 Other specified symptoms and signs involving the circulatory and respiratory systems (principal)
CPT/HCPCS: 71046

== ENCOUNTER 2024-09-14 10:22 | Outpatient (CLI) | payer MEDICARE, MEDICAID, SELFPAY ==
--- NOTE | 2024-09-14 | CA_ITS ---
APPROVED REPORT EXAM: Comprehensive 2D, Doppler, and color-flow Echocardiogram [employer]raz[employer]: Lorie [place] RVT Ht: 5 ft 3 in Wt: 155lbs BSA: 1.74 BP: 131/69 mmHg Indications: COMPLETE HEART BLOCK,SSS,PACER,A-FIB,DM M-Mode Dimensions RVDd 2.84 cm (0.9-2.6) LA Diam 4.84 cm (1.9-4.0) LVDd 4.94 cm (3.5-5.7) LVDs 3.57 cm (3.5-5.7) IVSd 0.73 cm (0.6-1.1) PWd 0.71 cm (0.6-1.1) EF (Teich) 53.70% FS 27.70% EDV (Teich) 115.00 mL ESV (Teich) 53.30 mL LV Diastology E Decel Time 150 (160-240 msec) E/A Ratio 2.5 Aortic Valve XIOMARA Index 1.01 cm2/m2 AoV Peak Jeffry. 93.0 (50-130 cm/s) AO Peak GR. 3.50 mmHg AO Mean GR. 2.00 (<5 mmHg) AO VTI 18.2 (18-25 cm) XIOMARA (VTI) 1.80 (2.5-4.5 cm2) Mitral Valve MV E Max Jeffry. 79.0 (40-130 cm/s) MV A Velocity 32.0 (40-130 cm/s) E/A Ratio 2.42 MV PHT 44.0 ms Pulmonary Valve PV Peak Velocity 41.0 (50-150 cm/s) Tricuspid Valve TR P. Velocity 299.00 cm/s RAP Estimate 10.00 mmHg RVSP 45.90 mmHg Left Ventricle The left ventricle is normal size. The left ventricular systolic function is mildly reduced. There is increased LV wall thickness. The septum is asynchronous. There is mild global hypokinesis present. Grade 3 diastolic dysfunction is present. LVEF is 45%. Right Ventricle Right ventricle is mildly dilated. Right ventricle is mildly hypokinetic. A device lead is present in the right ventricle. Atria Left atrium is severely dilated. The right atrium is mildly dilated. Aortic Valve The aortic valve is mildly thickened. There is no aortic valvular stenosis. Trace aortic regurgitation is present. Mitral Valve The mitral valve leaflets are mildly thickened. No evidence of mitral valve stenosis. Moderate mitral regurgitation. Tricuspid Valve Tricuspid valve is grossly normal in structure and function. Mild tricuspid regurgitation. RVSP is 30-35 mmHg. Pulmonic Valve The pulmonary valve is normal in structure. Trace pulmonic regurgitation. Great Vessels The aortic root is normal in size. The ascending aorta is not well-visualized. IVC is normal in size and collapses >50% with inspiration. Pericardium Trivial, anterior pericardial effusion is present. No echo indications of tamponade. Other Information Study Quality: Technically Difficult Conclusion Technically difficult study due to poor acoustic windows. Mildly reduced LV systolic function (LVEF 45%). Grade 3 diastolic dysfunction. Asynchronous septum. Mildly dilated RV with mild reduction in RV function. Biatrial dilation. Moderate MR. Mild TR. RVSP 30-35 mmHg. Trivial, anterior pericardial effusion is present. No echo indications of tamponade. Electronically signed by : Shantal Owusu MD 09/14/2024 12:01:47
== END 2024-09-14 23:59 | disposition home or self-care (01) ==
LOC: RT 10:23
PROVIDERS: PCP Physician Assistant; Visit Provider Physician Assistant
DX: I51.7 Cardiomegaly (principal); I44.2 Atrioventricular block, complete; I49.5 Sick sinus syndrome
CPT/HCPCS: 93306